=== PATIENT | male | born 1985 | race Caucasian/White ===

== ENCOUNTER 2018-07-19 13:28 | Inpatient (IN) ==
[2018-07-19] MEDS ORDERED: Chlorpromazine Inj 50 MG/2 ML Ampule IM ONE (13:37)
[2018-07-19] MEDS ORDERED: Aluminum/Magnesium/Simethacone Susp 30 ML UDC PO PRN (13:41)
--- NOTE | 2018-07-19 13:50 | P.PNPSY ---
Patient is a 32 year old male with hx of substance use disorder including cocaine, alcohol, cannabis, antisocial personality disorder, who was released from this facility after 24-hour observation, and while in our parking lot made suicidal gesture by placing his belt around his neck in front of a police man. The officer placed the patient under a BA. This patient was also evaluated [address] Guzman who discharged the patient and after the patient was discharged he self-inflicted a very superficial laceration to his wrist and was placed under Lynch act within 2 hours of his discharge. Patient was recently released from snf and finds himself homeless. While he is under observation the patient does not demonstrate any symptom of depression , any suicidality. Case is discussed with Dr. Carpio who recommends patient be admitted to 2700.
[2018-07-20 09:07] LABS: Carbon Dioxide 28.1 meq/L (21.0-32.0); Potassium 3.5 meq/L (3.5-5.1)
[2018-07-20 09:12] LABS: Chol/HDL Ratio 4.28 Ratio; HDL Cholesterol 39.9 mg/dL (40.0-60.0)
--- NOTE | 2018-07-20 12:08 | P.HPPSY ---
Provisional Diagnosis Admission Date: July 19, 2018 14:25 Competence Certification of Person's Competence To Provide Express and Informed Consent I have personally examined Darian Orourke JR, a person being served at [facility] on, July 20, 2018 1205. Express and informed consent means consent voluntarily given in writing, by a competent person, after sufficient explanation and disclosure of the subject matter involved to enable the person to make a knowing and willful decision without any element of force, fraud, deceit, duress, or other form of constraint or coercion. This person is 18 years of age or older, is not now known to be incompetent to consent to treatment with a guardian advocate, and does not have a health care surrogate or proxy currently making medical treatment decisions. I have found this person to be one of the following: [] Competent to provide express and informed consent, as defined above, for voluntary admission to this facility and is competent to provide express and informed consent for treatment. He/she has the consistent capacity to make well reasoned, willful, and knowing decisions concerning his or her medical or mental health treatment. The person fully and consistently understands the purpose of the admission for examination/placement and is fully capable of personally exercising all rights assured under [place] [] Incompetent to provide express and informed consent to voluntary admission, and this is incompetent to provide express and informed consent to treatment. The person must be transferred to involuntary status and a petition for a guardian advocate filed with the Circuit Court. [X] Refusing to provide express and informed consent to voluntary admission but is competent to provide express and informed consent for treatment. The person must be discharged or transferred to involuntary status. Form shall be completed within 24 hours of a person's arrival at the receiving facility and filed in the clinical record of each person: 1. Admitted on a voluntary basis 2. Permitted to provide express and informed consent to his/her own treatment 3. Allowed to transfer from involuntary to voluntary status 4. Prior to permitting a person to consent to his or her own treatment after having been previously found incompetent to consent to treatment. History of Present Illness Capacity: Has capacity History of Present Illness: " Patient is a 32 year old male with hx of substance use disorder including cocaine, alcohol, cannabis, antisocial personality disorder, who was released from this facility after 24-hour observation, and while in our parking lot made suicidal gesture by placing his belt around his neck in front of a police man. The officer placed the patient under a BA. This patient was also evaluated [address] Guzman who discharged the patient and after the patient was discharged he self-inflicted a very superficial laceration to his wrist and was placed under Lynch act within 2 hours of his discharge. Patient was recently released from longterm and finds himself homeless. While he is under observation the patient does not demonstrate any symptom of depression , any suicidality." Patient was seen and case was discussed with nursing. Patient claims he had suicidal ideation before admission but today he is "much better." He has multiple cuts on his left forearm and a significant scar in his antecubital area from this past April. Patient has been out of longterm for 53 days and recently got kicked out of solutions by [facility] after he relapsed on cocaine. He has a history of suicidal gestures and cutting for attention. History of mood swings and irritability. At this time he denies suicidal or homicidal ideation intent or plan. Denies auditory or visual hallucinations. Patient was seeing a psychiatrist in longterm and was getting Lamictal 50 mg daily which gave him restless legs and Zyprexa 5 mg at night. Patient says he also had his suicide attempt in longterm where he tried to strangulate himself with a plastic bag. Past psych: Patient says is started with the mental health symptoms 2 years ago. He was previously on lithium which worked well for him. He has had 2-3 "serious suicide attempts." Extensive history of cutting. Past medications are noted above. He denies a history of outpatient treatment. Past medical: Patient says he is diagnosed with hypertension and may have hep C. Liver enzymes are elevated at this time. He says he was on lisinopril, amlodipine, metoprolol Past Famhx: History of bipolar in both parents Past Social: Multiple admissions to longterm . Patient is history and recent use of heroin and cocaine with crack cocaine being his drug of choice. His last use of cocaine is past this past . Drinks alcohol on occasion. He is not and does not have any kids - Inpatient Certification I certify that the inpatient services were ordered in accordance with Medicare regulations governing the order. This includes certification that hospital inpatient services are reasonable and necessary and in the case of services not specified as inpatient-only under 42 CFR 419.22(n), that they are appropriately provided as inpatient services in accordance to with the 2-midnight benchmark under 43 CFR 412.3(e) I certify that inpatient psychiatric hospital services are medically necessary. Evaluation and treatment and/or diagnostic testing are expected to improve the patient's condition. The patient needs on a daily basis, active treatment furnished directly by or requiring the supervision of inpatient psychiatric facility personnel. Estimated Total Length of Stay (Days): 8 Plans for Post Hospital Care: Not yet determined Review of Systems All other systems reviewed negative except as stated in HPI [facility] - History History Provided By: Patient, Medical Record - Medical History Medical History: Medical History (Last Reviewed 07/20/18 @ 12:07 by Stoney Kerr DO) Hepatitis C Hypertension - Tobacco History Second Hand Smoke Exposure: Yes Tobacco Use In Past 30 Days: Yes Smoking Status: Heavy tobacco smoker Tobacco Type: Cigarettes - Alcohol History How Often Do You Have a Drink Containing Alcohol: Monthly or less - Substance Use History Substance History: Active Abuse - Substance Use Type Heroin Status: Active Frequency: 0.5gm daily Last Used: April Reason for Use: Get High Crack/Cocaine Status: Active Frequency: 1-2gm daily Last Used: 2018 Reason for Use: Get High - Travel History Recent Travel in the [place] Within the Last 8 Weeks: No Recent Travel Out of the Country Within the Last 8 Weeks: No - Immunization History Tetanus Immunization: <5 Years Hx Influenza Vaccine This Season: No Medications and Allergies Active Medications: Active Medications Al Hydrox/Mg Hydrox/Simethicone (Mag-Al Plus Susp Liq) 30 ml PO Q6H PRN PRN Reason: DYSPEPSIA Al Hydroxide/Mg Hydroxide (Milk Of Magnesia Liq) 30 ml PO Q12H PRN PRN Reason: Mild Constipation Diphenhydramine HCl (Benadryl) 50 mg PO Q6H PRN PRN Reason: For mild anxiety and/or EPS Sennosides (Senokot) 17.2 mg PO Q12H PRN PRN Reason: Moderate Constipation Allergies Allergy/AdvReac Type Severity Reaction Status Date / Time cat dander Allergy Severe UNKNOWN Verified 07/19/18 14:45 Home Medications Medication Instructions Recorded Confirmed Type amlodipine 2.5 mg PO HS 07/18/18 07/18/18 History lamotrigine [Lamictal] 50 mg PO DAILY 07/18/18 07/18/18 History lisinopril 5 mg PO DAILY 07/18/18 07/18/18 History metoprolol tartrate 25 mg PO DAILY 07/18/18 07/18/18 History olanzapine [Zyprexa] 5 mg PO HS 07/18/18 07/18/18 History lithium carbonate 300 mg PO BID 07/19/18 07/19/18 History Results - Labs CBC & Chem 7: 07/20/18 08:29 Labs: Laboratory Results - last 24 hr 07/20/18 08:29 Sodium 139 Potassium 3.5 Chloride 104 Carbon Dioxide 28.1 Anion Gap 7 BUN 15 Creatinine 1.14 Estimated GFR 75 L Random Glucose 148 H Calcium 9.0 Triglycerides 98 Cholesterol 171 LDL Cholesterol, Calc 112 H HDL Cholesterol 39.9 L Cholesterol/HDL Ratio 4.28 Exam Vital signs: Vital Signs 07/19/18 17:02 07/20/18 06:00 Temperature 97.8 F 98 F Pulse Rate 87 100 H Respiratory Rate 17 17 Blood Pressure 116/59 L 116/77 Pulse Oximetry 98 97 Intake & Output 07/19/18 07/20/18 07/20/18 18:59 06:59 18:59 Weight 83.1 kg Other: Weight On Admission 83.1 kg Mental Status Examination Appearance: Appropriate Consciousness: Alert Orientation: x4 Motor Activity: Normal gait Speech: Unremarkable Language: Adequate Fund of Knowledge: Adequate Attention and Concentration: Adequate Memory: Unremarkable Mood: Appropriate Affect: Appropriate Thought Process & Associations: Intact Thought Content: Appropriate Hallucination Type: None Delusion Type: None Suicidal Ideation: No Suicidal Plan: No Suicidal Intention: No Homicidal Ideation: No Homicidal Plan: No Homicidal Intention: No Insight: Poor Judgment: Poor Assessment and Plan - Assessment (1) Borderline personality disorder Code(s): F60.3 - Borderline personality disorder Status: Acute (2) Substance induced mood disorder Code(s): F19.94 - Other psychoactive substance use, unspecified with psychoactive substance-induced mood disorder Status: Acute - Plan Plan: Patient has capacity for medications but not admission. Medical consult for elevated liver enzymes. [place] 600 mg p.o. nightly, Zyprexa 10 mg p.o. nightly. One-to-one given patient's behavior and history of damage to property. Borderline versus antisocial personality disorder Justification for Continued Inpatient Stay: Patient would decompensate in a less restrictive setting
[2018-07-20 12:43] LABS: Hemoglobin A1c 5.1 % (4.3-6.0)
--- NOTE | 2018-07-20 14:23 | P.CONIM ---
History of Present Illness Service: Hospitalist Consult date: 07/20/18 Requesting Physician: Stoney Kerr Reason for Consult: Assist with ongoing medical management Primary Care Provider: UNKNOWN History of Present Illness: This is a 32-year-old male with past medical history significant for hypertension, polysubstance abuse/dependence including heroin, cocaine and alcohol and antisocial personality disorder who has been admitted to inpatient psychiatry for suicidal ideation after patient made a suicidal gesture by placing a belt around his neck in front of a pals nurse after being discharged from this facility. Patient was placed under Lynch act by chief of police. Of note, patient was recently released from [facility] and is homeless. Hospitalist consult has been requested to assist with medical management and evaluation and management of elevated liver function test. Patient states he has been told in the past that he has elevated liver function test. He says that he may have hepatitis C. He denies any fever or chills. He denies any nausea, vomiting or abdominal pain. He denies any chest pain or shortness of breath. He denies any urinary complaints. He denies any diarrhea or constipation. He admits to current cocaine use and states he last used 2 days ago. Patient states that he has not consumed any alcohol recently. Review of Systems Review of Systems: all other systems reviewed are negative PMFSH Medical History Medical History Hepatitis C (Acute) Hypertension (Acute) Family History Family History Other Hypertension Social History Social History Substance History: Active Abuse Second Hand Smoke Exposure: Yes Smoking Status: Heavy tobacco smoker Tobacco Type: Cigarettes How Often Do You Have a Drink Containing Alcohol: Monthly or less Recent Travel in [facility] within the Last 8 Weeks: No Recent Out of Country Travel within the Last 8 Weeks: No Substance Abuse Detail Heroin: Substance Use Status: Active Substance Frequency: 0.5gm daily Last Used: April Reason for Use: Get High Crack/Cocaine: Substance Use Status: Active Substance Frequency: 1-2gm daily Last Used: 2018 Reason for Use: Get High Immunization History Tetanus Immunization: <5 Years Hx Influenza Vaccine This Season: No Medications and Allergies Allergies Allergy/AdvReac Type Severity Reaction Status Date / Time cat dander Allergy Severe UNKNOWN Verified 07/19/18 14:45 Home Medications Medication Instructions Recorded Confirmed Type amlodipine 2.5 mg PO HS 07/18/18 07/18/18 History lamotrigine [Lamictal] 50 mg PO DAILY 07/18/18 07/18/18 History lisinopril 5 mg PO DAILY 07/18/18 07/18/18 History metoprolol tartrate 25 mg PO DAILY 07/18/18 07/18/18 History olanzapine [Zyprexa] 5 mg PO HS 07/18/18 07/18/18 History lithium carbonate 300 mg PO BID 07/19/18 07/19/18 History Active Medications: Active Medications Al Hydrox/Mg Hydrox/Simethicone (Mag-Al Plus Susp Liq) 30 ml PO Q6H PRN PRN Reason: DYSPEPSIA Al Hydroxide/Mg Hydroxide (Milk Of Magnesia Liq) 30 ml PO Q12H PRN PRN Reason: Mild Constipation Diphenhydramine HCl (Benadryl) 50 mg PO Q6H PRN PRN Reason: For mild anxiety and/or EPS [place] Carbonate ([place] Carbonate) 600 mg PO HS TREY Olanzapine (Zyprexa) 10 mg PO HS TREY Sennosides (Senokot) 17.2 mg PO Q12H PRN PRN Reason: Moderate Constipation Physical Exam Vital signs: Last Vital Signs Temp 98 F 07/20/18 06:00 Pulse 100 H 07/20/18 06:00 Resp 17 07/20/18 06:00 BP 116/77 07/20/18 06:00 Pulse Ox 97 07/20/18 06:00 Intake & Output 07/18/18 07/19/18 07/20/18 07/21/18 06:59 06:59 06:59 06:59 Weight 83.1 kg Narrative: GENERAL: WDWN young male patient, INAD. Awake and alert. SKIN: Warm and dry. No generalized rash. HEAD: Atraumatic. Normocephalic. EYES: Pupils equal and round. No scleral icterus. No injection or drainage. ENT: No nasal bleeding or discharge. Mucous membranes pink and moist. NECK: Trachea midline. CARDIOVASCULAR: Regular rate and rhythm. No murmur appreciated. RESPIRATORY: No accessory muscle use. Clear to auscultation. Breath sounds equal bilaterally. GASTROINTESTINAL: Abdomen soft, non-tender, nondistended. Hepatic and splenic margins not palpable. MUSCULOSKELETAL: Extremities without clubbing, cyanosis, or edema. No obvious deformities. NEUROLOGICAL: Awake and alert. No obvious cranial nerve deficits. Motor grossly within normal limits. Able to move all extremities spontaneously. Normal speech. PSYCHIATRIC: Calm and cooperative Results Labs CBC & Chem 7: 07/20/18 08:29 Assessment and Plan (1) Borderline personality disorder: Code(s): F60.3 - Borderline personality disorder Status: Acute (2) Substance induced mood disorder: Code(s): F19.94 - Other psychoactive substance use, unspecified with psychoactive substance-induced mood disorder Status: Acute Plan 32-year-old male with past medical history significant for hypertension, polysubstance abuse/dependence, questionable history of hepatitis C and antisocial personality disorder admitted to inpatient psychiatry under Lynch act for suicidal ideation. Hospitalist services have been consulted to assist with ongoing medical management. Suicidal ideation Antisocial personality disorder Patient was apparently admitted for 24-hour observation and after being discharged made a suicidal gesture by placing a belt around his neck. Patient was Lynch acted by law enforcement and brought back into the hospital and has since been admitted to inpatient psychiatry. -Management per psychiatric team Hypertension, chronic Patient on metoprolol, lisinopril and amlodipine at home BP currently well controlled off of any antihypertensives, 116/77 -We will hold off on resuming scheduled antihypertensives at this time -Continue to monitor BP and adjust treatment accordingly Elevated liver function test, suspect multifactorial in this patient with possible hepatitis C, alcohol abuse and on Zyprexa Questionable history of hepatitis C AST 168, ALT 278 -Obtain liver ultrasound for further evaluation -Hepatitis profile ordered -Avoid hepatotoxic agents -Continue to trend LFTs Polysubstance abuse/dependence to include cocaine, alcohol and heroin UDS + cocaine -Discussed with patient the danger of continued polysubstance abuse and recommended cessation. Discussed specifically concern of ongoing cocaine use while on beta-juliette therapy. DVT prophylaxis -Patient is ambulatory Thank you for this consultation. We will continue to follow patient along with you.
--- NOTE | 2018-07-20 18:52 | US ---
EXAM DATE: 07/20/2018 6:47 PM EST AGE/SEX: 32 years / Male INDICATIONS: Abdominal pain. CLINICAL DATA: This is the patient's initial encounter. Patient reports that signs and symptoms have been present for 1 day and indicates a pain score of 0/10. MEDICAL/SURGICAL HISTORY: Hepatitis C. Hypertension. None. COMPARISON: No prior exams available for comparison. MEASUREMENTS: Liver:__ 16.1 cm. Common Bile Duct:__ Nonvisualized. Right Kidney:__ 9.9 x 4.6 x 6.6 cm. FINDINGS: Liver: Normal echogenicity without focal lesion or ductal dilatation. Portal Vein: Hepatopedal flow seen in portal vein. Common Duct: No intraluminal mass or stone visualized. Gallbladder: Demonstrates no wall thickening or pericholecystic fluid. No stones visualized. Pancreas: The visualized portions are within normal limits Right Kidney: Normal echogenicity and cortical thickness. No mass or hydronephrosis. Other: There is a small right pleural effusion . CONCLUSION: 1. Small right pleural effusion, otherwise unremarkable. Electronically signed by: Barbara Mosqueda MD Board Certified Radiologist 07/20/2018 6:50 PM EST
[2018-07-20 21:19] LABS: Hepatitits B Surface Antigen Nonreactive (Nonreactive)
[2018-07-20] MEDS: OLANZapine 10 MG Tablet PO SCH (21:28)
[2018-07-20 21:35] LABS: Hepatitis A IgM Antibody Nonreactive (Nonreactive)
--- NOTE | 2018-07-21 12:52 | P.PNPSY ---
Subjective Chief Complaint: Follow-up for self-injurious behaviors Remarks: Patient seen for follow-up, chart reviewed, patient discussed with nursing staff ; we reviewed the patient's mood, thoughts, and behaviors from overnight and this morning. Nurse reports the patient slept 8 hours overnight. He has been cooperative with care with no behavioral problems. Patient was seen at bedside this morning and is reporting depression at levels of 6 out of 10 and anxiety at 2 out of 10. Patient does report anxiety about the uncertainty of his discharge plans but he believes that the start of lithium and Zyprexa has helped to take his edge off. Patient reports that lithium and Zyprexa combination had helped him in the past and he would like to continue. Patient acknowledges need for substance use treatment and is working with unit social and political studies professor to find programs that would accept him. Patient reportedly declined referral to a homeless detention. The patient is accepting referrals to [facility] for follow-up mental health care. Patient reports that he does not have income to pay for his discharge medications and will be dependent on the community mental health program. The patient denies any active thoughts of self-harm or harm to others. He denies any auditory or visual hallucinations. Review of Systems All other systems reviewed negative except as stated in HPI Mental Status Examination Appearance: Appropriate Consciousness: Alert Orientation: x4 Motor Activity: Normal gait Speech: Unremarkable Language: Adequate Fund of Knowledge: Adequate Attention and Concentration: Adequate Memory: Unremarkable Mood: Appropriate Affect: Appropriate Thought Process & Associations: Intact Thought Content: Appropriate Hallucination Type: None Delusion Type: None Suicidal Ideation: No Suicidal Plan: No Suicidal Intention: No Homicidal Ideation: No Homicidal Plan: No Homicidal Intention: No Insight: Fair Judgment: Impulsive Assessment and Plan - Assessment (1) Borderline personality disorder Code(s): F60.3 - Borderline personality disorder Status: Acute (2) Substance induced mood disorder Code(s): F19.94 - Other psychoactive substance use, unspecified with psychoactive substance-induced mood disorder Status: Acute - Plan Plan: 07/21/2018: Fair response to inpatient treatment and stabilization; patient's mood and behavior have been stable and appropriate on the unit. He is reporting good response to the restart of lithium and Zyprexa. The patient remains a high risk of self injury and relapse if she were to be discharged without a safe discharge plan. Patient is cooperative with referrals to outpatient mental health clinic but is reluctant to go to a detention due to risks of relapse and will seek placement in a recovery program. Continue inpatient stabilization and treatment to include lithium 600 mg at bedtime and Zyprexa 10 mg at bedtime. Discontinue one-on-one observation. Maintain routine observation on the [address]. Discharge planning: Patient will be set up with follow-up with [facility] with anticipated discharge tomorrow morning so that he can get over to the outpatient mental health clinic and receive assistance with refills of his discharge medications. Justification for Continued Inpatient Stay: Patient remains an elevated risk for self-harm and will require further inpatient stabilization and preparation of a safe discharge plan. Moving patient to a less restrictive environment at this time may result in decompensation.
--- NOTE | 2018-07-21 14:02 | P.PNIM ---
Subjective Interval history: Follow-up on patient with elevated liver function test. Patient seen and examined. Noted to be walking with a slight limp. Patient states that he has discomfort in the right leg from where he was given an injection when he first came into the hospital but states it is improving. Discussed with patient positive hepatitis C status. Discussed with him the importance of treatment and the concern for untreated hepatitis C transitioning into hepatic cancer. Advised patient on importance of avoidance of hepatotoxic agents most especially alcohol. Advised patient he will need to follow-up with gastroenterology as an outpatient. patient denies any nausea, vomiting or abdominal pain. Physical Exam Vital signs: Last Vital Signs Temp 98 F 07/21/18 06:00 Pulse 88 07/21/18 06:00 Resp 16 07/21/18 06:00 BP 116/58 L 07/21/18 06:00 Pulse Ox 100 07/21/18 06:00 Intake & Output 07/19/18 07/20/18 07/21/18 07/22/18 06:59 06:59 06:59 06:59 Weight 83.1 kg 85.5 kg Narrative: GENERAL: WDWN young male patient, INAD. Awake and alert. SKIN: Warm and dry. No generalized rash. HEENT: Atraumatic. Normocephalic. Pupils equal and round. No scleral icterus. No injection or drainage. No nasal bleeding or discharge. Mucous membranes pink and moist. NECK: Trachea midline. CARDIOVASCULAR: Regular rate and rhythm. No murmur appreciated. RESPIRATORY: No accessory muscle use. Clear to auscultation. Breath sounds equal bilaterally. GASTROINTESTINAL: Abdomen soft, non-tender, nondistended. Bowel sounds normal. MUSCULOSKELETAL: Extremities without clubbing, cyanosis, or edema. No obvious deformities. Right thigh mildly tender to palpation. No appreciable erythema , warmth or edema. No ecchymosis. NEUROLOGICAL: Awake and alert. No obvious cranial nerve deficits. Motor grossly within normal limits. Able to move all extremities spontaneously. Normal speech. PSYCHIATRIC: Calm and cooperative Results Labs CBC & Chem 7: 07/20/18 08:29 Imaging Imaging: Impressions Liver Ultrasound 07/20/18 00:00 CONCLUSION: 1. Small right pleural effusion, otherwise unremarkable. Assessment and Plan (1) Borderline personality disorder: Code(s): F60.3 - Borderline personality disorder Status: Acute (2) Substance induced mood disorder: Code(s): F19.94 - Other psychoactive substance use, unspecified with psychoactive substance-induced mood disorder Status: Acute Plan 32-year-old male with past medical history significant for hypertension, polysubstance abuse/dependence, questionable history of hepatitis C and antisocial personality disorder admitted to inpatient psychiatry under Lynch act for suicidal ideation. Hospitalist services have been consulted to assist with ongoing medical management. Suicidal ideation Antisocial personality disorder Patient was apparently admitted for 24-hour observation and after being discharged made a suicidal gesture by placing a belt around his neck. Patient was Lynch acted by law enforcement and brought back into the hospital and has since been admitted to inpatient psychiatry. -Management per psychiatric team Hypertension, chronic Patient on metoprolol, lisinopril and amlodipine at home BP currently well controlled off of any antihypertensives, 116/58 -We will hold off on resuming scheduled antihypertensives at this time -Continue to monitor BP and adjust treatment accordingly Elevated liver function test, suspect multifactorial in this patient with possible hepatitis C, alcohol abuse and on Zyprexa Questionable history of hepatitis C Hyperbilirubinemia AST 168, ALT 278 Liver US unremarkable -LFTs trending down -Hepatitis profile +Hep C. Discussed positive hep C status with patient including importance of avoidance of alcohol and concern for progression of hep C to cancer. Recommended patient follow-up with [facility] as outpatient to discuss further treatment options. All questions addressed and answered. Patient stated understanding. Will defer continued Zyprexa use to primary service. LFTs are trending down -acute elevation may be secondary to active alcohol use/abuse. -Avoid hepatotoxic agents -Continue to trend LFTs as indicated Polysubstance abuse/dependence to include cocaine, alcohol and heroin UDS + cocaine -Discussed with patient the danger of continued polysubstance abuse and recommended cessation. Discussed specifically concern of ongoing cocaine use while on beta-juliette therapy. DVT prophylaxis -Patient is ambulatory Patient appears stable from hospitalist standpoint. [facility] will sign off. Please reconsult if needed. Progress Note: Quality VTE Deep Vein Thrombosis/Pulmonary Embolism Present on Admission: No
[2018-07-21 15:28] VITALS: RESP 18; TEMP 98.7
[2018-07-21] MEDS: OLANZapine 10 MG Tablet PO SCH (20:46)
[2018-07-22 05:35] VITALS: BP 115/67; PULSE 95; O2SAT 94
--- NOTE | 2018-07-22 09:56 | P.TTN ---
- Patient Problems Problems: 1. Discharge planning 2. Medication compliance 3. Knowledge deficit 4. Lack of coping skills - Progress Toward Goals Provider Present: Other (Dr. Montes - patient meets criteria for discharge.) Psychiatric Counselors Present: Gage Mayfield Jr., [facility] (Patient returning to [facility] by this he sober living at [address] [place] , [address].) Group Spec/RT/OT/AARON Present: AGNIESZKA Gonzalez (Patient attends groups.) - Documentation Teaching Recipient: Patient
--- NOTE | 2018-07-22 12:07 | P.DSPSY ---
Psychiatry Discharge Summary Inpatient Psychiatric care?: Yes Advance Directives: No Mental Health Advance Directive: No Health Care Proxy: No - Admission Admission Date: July 19, 2018 14:25 - Admission Diagnosis (1) Borderline personality disorder Code(s): F60.3 - Borderline personality disorder (2) Substance induced mood disorder Code(s): F19.94 - Other psychoactive substance use, unspecified with psychoactive substance-induced mood disorder Brief History: " Patient is a 32 year old male with hx of substance use disorder including cocaine, alcohol, cannabis, antisocial personality disorder, who was released from this facility after 24-hour observation, and while in our parking lot made suicidal gesture by placing his belt around his neck in front of a police man. The officer placed the patient under a BA. This patient was also evaluated [address] Guzman who discharged the patient and after the patient was discharged he self-inflicted a very superficial laceration to his wrist and was placed under Lynch act within 2 hours of his discharge. [facility] was recently [facility] and finds himself homeless. While he is under observation the patient does not demonstrate any symptom of depression , any suicidality." Patient was seen and case was discussed with nursing. Patient claims he had suicidal ideation before admission but today he is "much better." He has multiple cuts on his left forearm and a significant scar in his antecubital area from this past April. [facility] has [facility] and recently got kicked [facility] by [facility] after he relapsed on cocaine. He has a history of suicidal gestures and cutting for attention. History of mood swings and irritability. At this time he denies suicidal or homicidal ideation intent or plan. Denies auditory or visual hallucinations. Patient was seeing a psychiatrist in [facility] and was getting Lamictal 50 mg daily which gave him restless legs and Zyprexa 5 mg at night. Patient says he also had his suicide attempt in [facility] where he tried to strangulate himself with a plastic bag. Past psych: Patient says is started with the mental health symptoms 2 years ago. He was previously on lithium which worked well for him. He has had 2-3 "serious suicide attempts." Extensive history of cutting. Past medications are noted above. He denies a history of outpatient treatment. Past medical: Patient says he is diagnosed with hypertension and may have hep C. Liver enzymes are elevated at this time. He says he was on lisinopril, amlodipine, metoprolol Past Famhx: History of bipolar in both parents Past Social: [facility] . Patient is history and recent use of heroin and cocaine with crack cocaine being his drug of choice. His last use of cocaine is past this past . Drinks alcohol on occasion. He is not and does not have any kids Tobacco Use In Past 30 Days: Yes How Often Do You Have a Drink Containing Alcohol: Monthly or less Hospital Course: 07/21/2018: Fair response to inpatient treatment and stabilization; patient's mood and behavior have been stable and appropriate on the unit. He is reporting good response to the restart of lithium and Zyprexa. The patient remains a high risk of self injury and relapse if she were to be discharged without a safe discharge plan. Patient is cooperative with referrals to outpatient mental health clinic but is reluctant to go to a senior care due to risks of relapse and will seek placement in a recovery program. Continue inpatient stabilization and treatment to include lithium 600 mg at bedtime and Zyprexa 10 mg at bedtime. Discontinue one-on-one observation. Maintain routine observation on the [address]. Discharge planning: Patient will be set up with follow-up with [facility] with anticipated discharge tomorrow morning so that he can get over to the outpatient mental health clinic and receive assistance with refills of his discharge medications. 07/22/2018: Patient was seen and examined on the unit by psychiatry and also visited by counselor. Psychotropic medications remained well tolerated. There was a good response to inpatient treatment plan noted by nursing and provider observations, and the patient reported improvements in mood, anxiety, and there was no evidence of any suicidality or homicidality at time of discharge. Psychiatric follow-up as arranged by counselor. Patient is also to follow up with primary care due to elevated liver enzymes. I have counseled the patient to abstain from substances of abuse including cannabis and have counseled patient to return to the psychiatric emergency room for any concerning symptoms as part of a general safety plan. Suicide and violence risk assessment on day of discharge both suggest patient is lower than imminent risk from mental illness. He is denying depressed mood and is denying suicidal ideation. There is no evidence of impairment in reality construction. We will bolster protective factors by relinking the patient with outpatient psychiatric services. He was educated on options for getting his medications filled as well as the importance of close psychiatric follow-up to ensure his body is tolerating the effects of his psychotropics. There is no evidence of self-care deficit at time of discharge. Patient has maximized benefit from this inpatient psychiatric hospital stay. - Discharge Discharge Date: 07/22/18 - Discharge Diagnosis (1) Borderline personality disorder Code(s): F60.3 - Borderline personality disorder Status: Acute (2) Substance induced mood disorder Code(s): F19.94 - Other psychoactive substance use, unspecified with psychoactive substance-induced mood disorder Status: Acute Discharge Disposition: Home - Discharge Time > 30 minutes Mental Status Examination Appearance: Appropriate Consciousness: Alert Orientation: x4 Motor Activity: Normal gait Speech: Unremarkable Language: Adequate Fund of Knowledge: Adequate Attention and Concentration: Adequate Memory: Unremarkable Mood: Appropriate Affect: Appropriate Thought Process & Associations: Intact Thought Content: Appropriate Hallucination Type: None Delusion Type: None Suicidal Ideation: No Suicidal Plan: No Suicidal Intention: No Homicidal Ideation: No Homicidal Plan: No Homicidal Intention: No Insight: Fair Judgment: Impulsive Discharge/Advance Care Plan - Results Vital Signs: Last Vital Signs Temp 98.7 F 07/22/18 05:34 Pulse 95 H 07/22/18 05:34 Resp 18 07/22/18 05:34 BP 115/67 07/22/18 05:34 Pulse Ox 94 L 07/22/18 05:34 Lab Results: Laboratory Results Hemoglobin A1c 5.1 % (4.3-6.0) 07/20/18 08:29 Triglycerides 98 mg/dL (42-150) 07/20/18 08:29 Cholesterol 171 mg/dL (120-200) 07/20/18 08:29 LDL Cholesterol, Calc 112 mg/dL (0-99) H 07/20/18 08:29 HDL Cholesterol 39.9 mg/dL (40.0-60.0) L 07/20/18 08:29 Summary of Procedures: None ordered Imaging: ITS Impressions Liver Ultrasound 07/20/18 00:00 CONCLUSION: 1. Small right pleural effusion, otherwise unremarkable. Pending Results: None - Medications Number of antipsychotic medications at discharge: 1 - Discharge Care Plan Goals to Promote Your Health: * To prevent worsening of your condition and complications * To maintain your health at the optimal level Directions to Meet Your Goals: Take your medications as prescribed Follow your dietary instruction Follow activity as directed Keep your appointments as scheduled Take your immunizations and boosters as scheduled If your symptoms worsen call your PCP, if no PCP go to Urgent Care Center or Emergency Room For 04/02 questions related to your inpatient stay or results of tests pending at discharge, please contact Dr. Sampson Montes MD at Smoking is Dangerous to Your Health. Avoid second hand smoking
== END 2018-07-22 10:05 | disposition home or self-care (01) | DRG 883 ==
LOC: NEPJ 13:28 → NEDA 14:25 → H270 14:29
PROVIDERS: ADMIT Psychiatry & Neurology Psychiatry; ATTEND Psychiatry & Neurology Psychiatry
DX: F60.3 Borderline personality disorder; F17.210 Nicotine dependence, cigarettes, uncomplicated; F10.10 Alcohol abuse, uncomplicated; F14.14 Cocaine abuse with cocaine-induced mood disorder; Z91.5 Personal history of self-harm; R45.851 Suicidal ideations; Z59.0 Homelessness; I10 Essential (primary) hypertension; E80.6 Other disorders of bilirubin metabolism; F19.94 Other psychoactive substance use, unspecified with psychoactive substance-induced mood disorder; Z81.8 Family history of other mental and behavioral disorders; B19.20 Unspecified viral hepatitis C without hepatic coma; F60.2 Antisocial personality disorder
CPT/HCPCS: 76705; 80048; 80061; 80074; 80076; 83036; J1200; J3230